=== PATIENT | female | born 1965 | race Caucasian/White ===

== ENCOUNTER 2022-09-28 05:11 | Day surgery (SDC) | payer BC, MEDICAID ==
[2022-09-25 15:29] LABS: BASOPHILS # (AUTO) 0.1 X10'3 (0-0.2); BASOPHILS % (AUTO) 1.5 % (0-1); EOSINOPHILS # (AUTO) 0.8 X10'3 (0-0.9); EOSINOPHILS % (AUTO) 15.5 % (0-6); LYMPHOCYTES % (AUTO) 19.3 % (21-51); MEAN CORPUSCULAR HEMOGLOBIN 24.8 PG (27.0-31.0); MEAN CORPUSCULAR HGB CONC 31.4 g/dL (33.0-36.5); MEAN CORPUSCULAR VOLUME 78.8 FL (78-98); MONOCYTES # (AUTO) 0.4 X10'3 (0-0.9); MONOCYTES % (AUTO) 8.2 % (2-12); NEUTROPHILS % (AUTO) 55.5 % (42-75); PRE OP HEMATOCRIT 38.6 % (35.0-45.0); PRE OP HEMOGLOBIN 12.1 g/dL (12.0-16.0); PRE OP PLATELET COUNT 300 X10'3 (140-440); RED CELL DISTRIBUTION WIDTH 17.2 % (11.5-14.5)
[2022-09-25 15:41] LABS: ALBUMIN 3.7 G/DL (3.4-5.0); ALKALINE PHOSPHATASE 121 IU/L (46-116); BLOOD UREA NITROGEN 14 MG/DL (7-18); BUN/CREATININE RATIO 18.4 (6.6-38.0); CALCIUM 8.9 MG/DL (8.5-10.1); CHLORIDE 101 MMOL/L (99-107); CREATININE 0.76 MG/DL (0.40-0.90); PRE OP ALT 79 U/L (30-65); PRE OP ANION GAP 2 (8-16); PRE OP AST 56 U/L (10-37); PRE OP BILIRUB, TOTAL 0.4 MG/DL (0.0-1.0); PRE OP GLUCOSE 99 MG/DL (70-104); PRE OP POTASSIUM 3.8 MMOL/L (3.4-5.1); PRE OP SODIUM 135 MMOL/L (135-145); TOTAL CARBON DIOXIDE 31.7 MMOL/L (24-32); TOTAL PROTEIN 7.5 G/DL (6.4-8.2); eGFR 79 ML/MIN
[~2022-09-28] VITALS: Ht 162.6 cm; Wt 106.1 kg
[2022-09-28] VITALS (7 sets, daily range): BP systolic 115–143; BP diastolic 69–80
[~2022-09-28 05:11] MED LIST: CYCL-1 PO; LEVO50TA8 PO; LORA-269 PO; PANT40TA54 PO; PARO40TA4 PO; ringers solution, lacted 1,000 ML IV SCH
[2022-09-28] MEDS ORDERED: ceFAZolin inj. 2,000 MG in dextrose 5%-water 100 ML IV ONE (05:30)
[2022-09-28] MEDS ORDERED: famotidine 20mg tablet PO ONE (05:30)
[2022-09-28] MEDS ORDERED: BUPIVAcaine/PF 5 mg/ml 10ml ONE (06:41)
[2022-09-28] MEDS ORDERED: LIDOcaine 1% 30ml preserv. free vial ONE (07:46)
[2022-09-28] MEDS ORDERED: fentaNYL/PF 50MCG/1 ML 2ML syringe ONE (07:50)
[2022-09-28] MEDS ORDERED: MIDAZolam 1 MG/ML 5ML VIAL ONE (07:50)
[2022-09-28] MEDS ORDERED: ketorolac trometh. 30mg/ml inj. ONE (07:54)
[2022-09-28] MEDS ORDERED: propofol inj 20 ML IV ONE (08:20)
[2022-09-28] MEDS ORDERED: LIDOcaine 2% (20mg/ml) 5ml vial ONE (08:20)
--- NOTE | 2022-09-28 08:38 | NUR ---
Received from OR via [facility] TO ROOM 6, accompanied by Anesthesiologist DR LANDERS and report given by Anesthesiolgist. PT PRESNSDTS WITH PIV 210G LEFT HAND, RIGHT HAND DRESSING CDI. VSS. Addendum: 09/28/22 at 0922 by Olga Pires RN, RN Amended: Links added.
--- NOTE | 2022-09-28 09:18 | NUR ---
ALL DISCHARGE CRITERIA HAS BEEN MET. VSS, PAIN AT A TOLERABLE LEVEL, VOIDING AND ABLE TO SAFELY AMBULATE AND TRANSFER SELF. IV TAKEN OUT WITHOUT COMPLICATIONS. ALL DISCHARGE INSTRUCTIONS COVERED WITH PATIENT AND ALL QUESTIONS ANSWERED, COPY GIVEN TO PATIENT. PATIENT TAKEN OUT VIA WHEELCHAIR TO PERSONAL VEHICLE WHERE FAMILY/FRIEND DROVE PATIENT HOME. Addendum: 09/28/22 at 0922 by Olga Pires RN, RN Amended: Links added.
== END 2022-09-28 09:18 | disposition home or self-care (01) ==
LOC: PAS 05:11
PROVIDERS: ATTEND Orthopaedic Surgery Hand Surgery
DX: S63.591A Other specified sprain of right wrist, initial encounter (principal); M65.841 Other synovitis and tenosynovitis, right hand; D64.9 Anemia, unspecified; E66.01 Morbid (severe) obesity due to excess calories; Z68.37 Body mass index [BMI] 37.0-37.9, adult; K21.9 Gastro-esophageal reflux disease without esophagitis; F41.9 Anxiety disorder, unspecified; F32.9 Major depressive disorder, single episode, unspecified; G43.909 Migraine, unspecified, not intractable, without status migrainosus; E03.9 Hypothyroidism, unspecified; Z98.84 Bariatric surgery status; Z98.890 Other specified postprocedural states; Z90.49 Acquired absence of other specified parts of digestive tract; Z88.8 Allergy status to other drugs, medicaments and biological substances; Z79.899 Other long term (current) drug therapy; Z72.89 Other problems related to lifestyle; X58.XXXA Exposure to other specified factors, initial encounter; Y92.89 Other specified places as the place of occurrence of the external cause; Y99.8 Other external cause status; Y93.89 Activity, other specified
CPT/HCPCS: 29846; 36415; 80053; 82948; 85025; J0690; J1885; J2250; J2704; J3010; J3490; J7030; J7060; J7120; Z7506; Z7512; A4215; A4618; A6449; A7000

== ENCOUNTER 2023-01-30 08:51 | Emergency (ER) | payer BC, MEDICAID ==
[~2023-01-30] VITALS: Ht 162.6 cm; Wt 100.0 kg
[~2023-01-30 08:51] MED LIST changes: -ringers solution, lacted 1,000 ML IV SCH
[2023-01-30 09:59] LABS: APTT 25 SECONDS (22-32)
[2023-01-30 10:02] LABS: ALANINE AMINOTRANSFERASE 99 U/L (12-78); ALBUMIN 3.6 G/DL (3.4-5.0); ALKALINE PHOSPHATASE 92 IU/L (46-116); ANION GAP 9 (8-16); ASPARTATE AMINO TRANSFERASE 69 U/L (10-37); BILIRUBIN,TOTAL 0.6 MG/DL (0.1-1.0); BLOOD UREA NITROGEN 23 MG/DL (7-18); BUN/CREATININE RATIO 20.7 (10.0-20.0); CALCIUM 9.4 MG/DL (8.5-10.1); CHLORIDE 100 MMOL/L (99-107); CREATININE 1.11 MG/DL (0.40-0.90); GLUCOSE 102 MG/DL (70-104); SODIUM 136 MMOL/L (135-145); TOTAL CARBON DIOXIDE 27.2 MMOL/L (24-32); TOTAL PROTEIN 7.2 G/DL (6.4-8.2); eGFR 51 ML/MIN
[2023-01-30 10:03] LABS: BASOPHILS % (AUTO) 0.7 % (0-1); EOSINOPHILS # (AUTO) 0.3 X10'3 (0-0.9); HEMATOCRIT 41.9 % (35.0-45.0); HEMOGLOBIN 13.3 g/dl (12.0-16.0); LYMPHOCYTES % (AUTO) 19.8 % (21-51); MEAN CORPUSCULAR HEMOGLOBIN 25.5 PG (27.0-31.0); MEAN CORPUSCULAR HGB CONC 31.7 g/dL (33.0-36.5); MEAN CORPUSCULAR VOLUME 80.4 FL (78-98); MEAN PLATELET VOLUME 8.8 FL (7.4-10.4); MONOCYTES # (AUTO) 0.6 X10'3 (0-0.9); MONOCYTES % (AUTO) 11.4 % (2-12); NEUTROPHILS # (AUTO) 3.3 X10'3 (1.8-7.7); NEUTROPHILS % (AUTO) 62.1 % (42-75); PLATELET COUNT 291 X10'3 (140-440); RED BLOOD COUNT 5.21 X10'6 (4.20-5.60); RED CELL DISTRIBUTION WIDTH 18.6 % (11.5-14.5); WHITE BLOOD COUNT 5.3 X10'3 (4.5-11.0)
[2023-01-30 10:44] LABS: CLARITY,URINE CLOUDY (Clear); COLOR,URINE YELLOW (Yellow); GLUCOSE, URINE NEGATIVE (Neg); KETONES,URINE NEGATIVE (Neg); LEUKOCYTE ESTERASE ,URINE NEGATIVE (Neg); NITRITES, URINE NEGATIVE (Neg); OCCULT BLOOD,URINE NEGATIVE (Neg); PROTEIN,URINE NEGATIVE (Neg); UROBILINOGEN,URINE 0.2 E.U/dL (0.2-1.0)
[2023-01-30 10:45] LABS: UA COLLECTION TYPE CLN CATCH MIDSTREAM
[2023-01-30 10:46] LABS: D-DIMER 0.47 MG/L FEU (0-0.50)
[2023-01-30 10:52] LABS: MUCUS STRANDS FEW /LPF (Neg); SQUAMOUS EPITHELIAL CELL,UR FEW /LPF (FEW)
[2023-01-30 10:56] LABS: FINE GRANULAR CAST 0-3 /LPF (NEGATIVE)
[2023-01-30 10:57] LABS: BACTERIA,URINE FEW /HPF (Neg)
[2023-01-30 10:58] LABS: CELLULAR CAST 0-4 /LPF (NEGATIVE)
[2023-01-30 11:00] LABS: RBC,URINE 0-2 /HPF (0-2); RENAL CELLS, URINE FEW /HPF; TRANSITIONAL EPI CELLS,URINE FEW /HPF
[2023-01-30 11:02] LABS: WBC CLUMPS,URINE FEW /HPF (NEGATIVE)
[2023-01-30 12:12] VITALS: BP 115/74
== END 2023-01-30 12:13 | disposition home or self-care (01) ==
LOC: ER 08:52
DX: R06.02 Shortness of breath (principal); Z20.822 Contact with and (suspected) exposure to COVID-19; R42 Dizziness and giddiness; R51.9 Headache, unspecified
CPT/HCPCS: 36415; 71045; 80053; 81001; 83880; 84145; 84443; 84484; 85025; 85379; 85610; 85730; 86885; 86900; 86901; 87088; 87811; 93005; 99285